=== PATIENT | male | born 1960 | race Hispanic/Latino ===

== ENCOUNTER → 2018-04-19 | Outpatient (CLI) | payer MEDICARE, OTHER ==
[~2018-04-19] MED LIST: BACL10TA PO; CHOL400T33 PO; INSLAN SQ; LIRA0.6P SQ; LOSA25TA16 PO; METF-446 PO; METO-408 PO; PREG75 PO; TYL2 PO
== END | disposition home or self-care (01) ==
LOC: RAH 12:20
PROVIDERS: ATTEND Internal Medicine
DX: E11.40 Type 2 diabetes mellitus with diabetic neuropathy, unspecified (principal)
CPT/HCPCS: 93922

== ENCOUNTER → 2018-08-01 | Outpatient (CLI) | payer OTHER ==
[~2018-08-01] MED LIST changes: -LOSA25TA16 PO; +LOSA25TA41 PO
== END | disposition home or self-care (01) ==
LOC: SHCH 07:39
PROVIDERS: ATTEND Internal Medicine Cardiovascular Disease
DX: T82.898A Other specified complication of vascular prosthetic devices, implants and grafts, initial encounter (principal); Y83.2 Surgical operation with anastomosis, bypass or graft as the cause of abnormal reaction of the patient, or of later complication, without mention of misadventure at the time of the procedure
CPT/HCPCS: 93880

== ENCOUNTER 2019-03-01 08:04 | Day surgery (SDC) | payer OTHER ==
[2019-02-28 11:25] VITALS: BP 155/88
[2019-02-28 11:36] LABS: BASOPHILS % (AUTO) 0.7 % (0.0-5.0); EOSINOPHILS % (AUTO) 3.4 % (0.0-8.0); HEMATOCRIT 32.9 % (42-54); LYMPHOCYTES % (AUTO) 30.4 % (21.0-51.0); MEAN CORPUSCULAR HEMOGLOBIN 27.9 pg (27.0-33.0); MEAN CORPUSCULAR VOLUME 84.7 fL (79-99); MONOCYTES % (AUTO) 9.3 % (3.0-13.0); NEUTROPHILS % (AUTO) 56.2 % (40.0-77.0); NUCLEATED RED BLOOD CELLS 0.1 % (0.0-0.19); PLATELET COUNT (AUTO) 201 K/uL (130-400); RED BLOOD CELL COUNT(AUTO) 3.88 MIL/uL (4.50-6.20); WHITE BLOOD COUNT (AUTO) 5.1 K/uL (4.8-10.8)
[2019-02-28 11:46] LABS: POTASSIUM 4.7 mmol/L (3.5-5.1)
[2019-02-28 12:40] LABS: CREATININE 1.1 mg/dL (0.5-1.5)
--- NOTE | 2019-02-28 17:36 | NUR ---
LABS ABNORMAL H&H REPORTED TO DR. CRUZ. NO FURTHER ORDERS GIVEN
[2019-03-01] VITALS (12 sets, daily range): BP systolic 122–159; BP diastolic 80–95
[~2019-03-01] VITALS: Ht 175.3 cm; Wt 110.0 kg
[~2019-03-01 08:04] MED LIST changes: +ASPI-1181 PO; +ATOR20TA65 PO; -BACL10TA PO; +CHOL100046 PO; -CHOL400T33 PO; +FURO40TA5 PO; -INSLAN SQ; +INSU100I24 SQ; +ISOS30TA6 PO; -LOSA25TA41 PO; +METO-391 PO; -METO-408 PO; +RIVA20TA PO; +TELM40TA5 PO; -TYL2 PO
[2019-03-01] MEDS ORDERED: SODIUM CHLORIDE 0.9% 1000ML 1,000 ML IV ONE (09:16)
[2019-03-01] MEDS ORDERED: CEFAZOLIN SODIUM 1 GM VIAL ONE (09:16)
[2019-03-01] MEDS ORDERED: EPINEPHRINE 1 MG/ML 30ML VIAL IJ ONE (09:43)
[2019-03-01] MEDS: CEFAZOLIN SODIUM 1 GM VIAL IVP ONE ×2 (09:48→10:25)
[2019-03-01] MEDS ORDERED: PROPOFOL 10 MG/ML 20ML VIAL IV ONE (09:52)
[2019-03-01] MEDS ORDERED: LIDOCAINE PF 2% 5ML ABBOJECT ONE (09:52)
[2019-03-01] MEDS ORDERED: FENTANYL CITRATE PF 50 MCG/1 ML 5ML AMP IV ONE (09:53)
[2019-03-01] MEDS ORDERED: MIDAZOLAM HCL 1 MG/ML 2ML VIAL ONE (09:53)
[2019-03-01] MEDS ORDERED: ROCURONIUM 10MG/1ML SYR 10 MG/ML ML ONE (09:53)
[2019-03-01] MEDS ORDERED: EPHEDRINE SULFATE 50 MG/ML AMPULE ONE (10:00)
[2019-03-01] MEDS ORDERED: ROPIVACAINE 0.5% 5MG/ML 30ML IJ ONE (10:04)
[2019-03-01] MEDS ORDERED: PHENYLEPHRINE HCL 10 MG/ML 1ML VIAL IV ONE (12:03)
[2019-03-01] MEDS ORDERED: KETOROLAC TROMETHAMINE 30MG/ML ONE (12:57)
[2019-03-01] MEDS ORDERED: ONDANSETRON HCL 4 MG/2 ML VIAL ONE (12:57)
[2019-03-01] MEDS ORDERED: DEXAMETHASONE SOD PHOSPHATE 10MG/ML 1ML VIAL ONE (12:58)
[2019-03-01] MEDS ORDERED: GLYCOPYRROLATE 1 MG/5 ML SYRINGE ONE (12:58)
[2019-03-01] MEDS ORDERED: NEOSTIGMINE 5MG/5ML SYR IV ONE (12:58)
[2019-03-01] MEDS ORDERED: CEPH500B PO (13:12)
[2019-03-01] MEDS ORDERED: MEPERIDINE-PF 25 MG/ML SYG ONE ×2 (13:12→13:42)
[2019-03-01] MEDS ORDERED: HYDR-4457 PO (13:12)
--- NOTE | 2019-03-01 14:25 | NUR ---
RECEIVE PT RECEIVED FROM PACU VIA STRETCHER AWAKE ALERT ORIENTED X3. PT STABLE. NOT N ANY APPARENT DISTRESS. LEFT ARM IN SLING, SENSATION INTACT, GRASP WEAK. CALL [facility]ALLERO WITHIN REACH, WILL CALL FOR FAMILY TO COME IN TO ROOM. ICE PACK APPLIED TO LEFT SHOULDER, DRESSINGS X4 TO LEFT SHOULDER DRY AND INTACT, NO OOZING NOTED.
--- NOTE | 2019-03-01 15:15 | NUR ---
DISCHARGE PT DISCHARGED VIA WHEELCHAIR WITH AND DAUGHTER. PT STABLE. NO COMPLAINTS MADE. VOIDED PRIOR TO DISCHARGE. DRESSINGS X4 TO LEFT SHOULDER REMAINS DRY AND INTACT. DISCHARGE INSTRUCTIONS GIVEN TO , VERBALIZED UNDERSTANDING.
== END 2019-03-01 15:15 | disposition home or self-care (01) ==
LOC: DAH 08:04
PROVIDERS: ATTEND Orthopaedic Surgery
DX: M75.122 Complete rotator cuff tear or rupture of left shoulder, not specified as traumatic (principal); M25.812 Other specified joint disorders, left shoulder; M19.012 Primary osteoarthritis, left shoulder; I10 Essential (primary) hypertension; I25.10 Atherosclerotic heart disease of native coronary artery without angina pectoris; K59.00 Constipation, unspecified; H91.90 Unspecified hearing loss, unspecified ear; E11.9 Type 2 diabetes mellitus without complications; I48.91 Unspecified atrial fibrillation; E78.5 Hyperlipidemia, unspecified; Z79.899 Other long term (current) drug therapy; Z95.5 Presence of coronary angioplasty implant and graft; Z98.890 Other specified postprocedural states; Z80.0 Family history of malignant neoplasm of digestive organs; Z79.01 Long term (current) use of anticoagulants; Z86.73 Personal history of transient ischemic attack (TIA), and cerebral infarction without residual deficits
CPT/HCPCS: 23430; 29824; 29826; 29827; 36415; 64415; 76942; 80048; 82948 ×2; 85025; A4215; A4221; A4222; A4223; A4565; A4600; A4649 ×7; A4663; A4930; A6204; C1713 ×3; G0168; J0171; J0690; J1100; J1885; J2001; J2175 ×2; J2250; J2370; J2405; J2704; J2710; J2795; J3010; J3490 ×2; J7030 ×2

== ENCOUNTER 2019-10-28 05:52 | Day surgery (SDC) | payer OTHER ==
[2019-10-24 09:30] VITALS: BP 160/91
[2019-10-24 09:49] LABS: BASOPHILS % (AUTO) 0.8 % (0.0-5.0); EOSINOPHILS % (AUTO) 3.7 % (0.0-8.0); LYMPHOCYTES % (AUTO) 26.8 % (21.0-51.0); MEAN CORPUSCULAR HEMOGLOBIN 23.6 pg (27.0-33.0); MEAN CORPUSCULAR HGB CONC 29.4 g/dL (32.0-36.0); MEAN CORPUSCULAR VOLUME 80.2 fL (79-99); MONOCYTES % (AUTO) 9.7 % (3.0-13.0); NEUTROPHILS % (AUTO) 58.8 % (40.0-77.0); PLATELET COUNT (AUTO) 192 K/uL (130-400); RED BLOOD CELL COUNT(AUTO) 3.99 MIL/uL (4.50-6.20); RED CELL DISTRIBUTION WIDTH 17.4 % (11.0-15.5); WHITE BLOOD COUNT (AUTO) 5.2 K/uL (4.8-10.8)
[2019-10-24 10:12] LABS: CREATININE 1.3 mg/dL (0.5-1.5); POTASSIUM 4.2 mmol/L (3.5-5.1)
--- NOTE | 2019-10-25 11:45 | NUR ---
RE: ABNORMAL LABS INFORMED DR CRUZ REGARDING HGB 9.4, HCT 32.0. NO NEW ORDERS RECEIVED, MAY PROCEED WITH SURGERY.
[2019-10-28] VITALS (15 sets, daily range): BP systolic 107–166; BP diastolic 64–93
[~2019-10-28] VITALS: Ht 176.8 cm; Wt 115.8 kg
[~2019-10-28 05:52] MED LIST changes: -ASPI-1181 PO; +ASPI-1443 PO; -TELM40TA5 PO; +TELM40TA8 PO; +TRAZ-187 PO
[2019-10-28] MEDS ORDERED: CEFAZOLIN SODIUM 1 GM VIAL IVP SCH (06:00)
[2019-10-28] MEDS ORDERED: SODIUM CHLORIDE 0.9% 1000ML 1,000 ML IV ONE (06:53)
--- NOTE | 2019-10-28 06:55 | NUR ---
POTENTIAL FOR INFECTION: CLIPPED RIGHT KNEE / RIGHT LEG PER ANNMARIE MADERA, FOLLOWED BY WIPING WITH AZEB: 2% CHLORHEXIDINE GLUCONATE CLOTHE PATIENTS PRE-OP SKIN PREP.
[2019-10-28] MEDS ORDERED: SUCCINYLCHOLINE CHLORIDE 20 MG/ML 10 ML VIAL ONE (07:20)
[2019-10-28] MEDS ORDERED: LIDOCAINE PF 2% 5ML ABBOJECT ONE (07:20)
[2019-10-28] MEDS ORDERED: FENTANYL CITRATE PF 50 MCG/1 ML 2ML VIAL ONE (07:20)
[2019-10-28] MEDS ORDERED: PROPOFOL 10 MG/ML 20ML VIAL IV ONE (07:20)
[2019-10-28] MEDS ORDERED: MIDAZOLAM HCL 1 MG/ML 2ML VIAL ONE (07:21)
[2019-10-28] MEDS ORDERED: ROCURONIUM 10MG/1ML SYR 10 MG/ML ML ONE (08:12)
[2019-10-28] MEDS ORDERED: EPHEDRINE SULFATE 50 MG/ML AMPULE ONE (08:17)
[2019-10-28] MEDS ORDERED: GLYCOPYRROLATE 1 MG/5 ML SYRINGE ONE (08:19)
[2019-10-28] MEDS ORDERED: NEOSTIGMINE 5MG/5ML SYR IV ONE (08:20)
[2019-10-28] MEDS ORDERED: PHENYLEPHRINE HCL 10 MG/ML 1ML VIAL IV ONE (08:20)
[2019-10-28] MEDS ORDERED: SUGAMMADEX SODIUM 200 MG/2 ML VIAL IV ONE (08:34)
[2019-10-28] MEDS ORDERED: ACET1TAB12 PO (08:45)
[2019-10-28] MEDS ORDERED: CEPH500B PO (08:45)
== END 2019-10-28 10:35 | disposition home or self-care (01) ==
LOC: DAH 05:52
PROVIDERS: ATTEND Orthopaedic Surgery
DX: M23.221 Derangement of posterior horn of medial meniscus due to old tear or injury, right knee (principal); M17.11 Unilateral primary osteoarthritis, right knee; M94.261 Chondromalacia, right knee; I10 Essential (primary) hypertension; E78.5 Hyperlipidemia, unspecified; K21.9 Gastro-esophageal reflux disease without esophagitis; E11.40 Type 2 diabetes mellitus with diabetic neuropathy, unspecified; E11.59 Type 2 diabetes mellitus with other circulatory complications; E11.29 Type 2 diabetes mellitus with other diabetic kidney complication; E11.319 Type 2 diabetes mellitus with unspecified diabetic retinopathy without macular edema; I48.20 Chronic atrial fibrillation, unspecified; F41.1 Generalized anxiety disorder; D64.89 Other specified anemias; J44.9 Chronic obstructive pulmonary disease, unspecified; H91.90 Unspecified hearing loss, unspecified ear; Z86.73 Personal history of transient ischemic attack (TIA), and cerebral infarction without residual deficits; F17.200 Nicotine dependence, unspecified, uncomplicated; Z95.5 Presence of coronary angioplasty implant and graft; I25.10 Atherosclerotic heart disease of native coronary artery without angina pectoris; Z79.01 Long term (current) use of anticoagulants; Z79.899 Other long term (current) drug therapy
CPT/HCPCS: 29881; 36415; 80048; 82948 ×2; 85025; A4213; A4215; A4221; A4222; A4223; A4606; A4649 ×2; A4663; A4930; A5120; A6223; J0330; J0690; J2001; J2250; J2370; J2704; J2710; J3010; J3490 ×2; J7030 ×2; J7120

== ENCOUNTER 2019-11-20 14:14 | Emergency (ER) | payer OTHER ==
[~2019-11-20 14:14] MED LIST changes: +ACET1TAB12 PO; +CEPH500B PO
[2019-11-20] MEDS ORDERED: ASPIRIN 325 MG TABLET ONE (14:47)
[2019-11-20 14:53] LABS: BASOPHILS % (AUTO) 0.6 % (0.0-5.0); EOSINOPHILS % (AUTO) 3.2 % (0.0-8.0); HEMATOCRIT 28.4 % (42-54); LYMPHOCYTES % (AUTO) 25.9 % (21.0-51.0); MEAN CORPUSCULAR HEMOGLOBIN 23.4 pg (27.0-33.0); MEAN CORPUSCULAR HGB CONC 30.3 g/dL (32.0-36.0); MEAN CORPUSCULAR VOLUME 77.2 fL (79-99); MONOCYTES % (AUTO) 10.1 % (3.0-13.0); PLATELET COUNT (AUTO) 175 K/uL (130-400); RED BLOOD CELL COUNT(AUTO) 3.68 MIL/uL (4.50-6.20); RED CELL DISTRIBUTION WIDTH 17.5 % (11.0-15.5); WHITE BLOOD COUNT (AUTO) 5.3 K/uL (4.8-10.8)
[2019-11-20 15:07] LABS: CREATININE 1.4 mg/dL (0.5-1.5); POTASSIUM 4.1 mmol/L (3.5-5.1)
[2019-11-20 15:08] LABS: INR 1.26 (0.85-1.15); PARTIAL THROMBOPLASTIN TIME 31.5 SEC (26.3-35.5); PROTHROMBIN TIME 13.5 SEC (9.6-11.6)
[2019-11-20 15:11] LABS: ALBUMIN 3.9 g/dL (3.5-5.0); BILIRUBIN,TOTAL 0.6 mg/dL (0.2-1.0); TOTAL PROTEIN, SERUM 7.5 g/dL (6.0-8.3)
[2019-11-20 17:35] LABS: APPEARANCE,URINE Clear (CLEAR); BILIRUBIN,URINE Negative (NEGATIVE); COLOR,URINE Yellow (YELLOW); GLUCOSE, URINE (UA) 500 mg/dL (NEGATIVE); KETONES,URINE Negative (NEGATIVE); LEUKOCYTE ESTERASE ,URINE Negative (NEGATIVE); NITRATE,URINE Negative (NEGATIVE); OCCULT BLOOD,URINE Negative (NEGATIVE); PH,URINE 6.5 (5.0-8.0); PROTEIN,URINE Trace mg/dL (NEGATIVE)
[2019-11-20 17:48] LABS: BACTERIA,URINE None Seen /HPF (None Seen); RBC,URINE 0-1 /HPF (0-1); SQUAMOUS EPITHELIAL CELL,UR 0-2 /HPF (0-2); WBC,URINE 0-1 /HPF (0-1)
== END 2019-11-20 18:43 | disposition home or self-care (01) ==
LOC: EDH 14:14
DX: R07.89 Other chest pain (principal); D64.9 Anemia, unspecified; R06.02 Shortness of breath; I10 Essential (primary) hypertension; E78.5 Hyperlipidemia, unspecified; E11.9 Type 2 diabetes mellitus without complications; I48.91 Unspecified atrial fibrillation; Z86.73 Personal history of transient ischemic attack (TIA), and cerebral infarction without residual deficits; Z98.890 Other specified postprocedural states
CPT/HCPCS: 36415; 71045; 74176; 80053; 81001; 82270; 82550; 83880; 84484; 85025; 85610; 85730; 93005; 93971

== ENCOUNTER → 2020-05-06 | Outpatient (CLI) | payer OTHER | END | disposition home or self-care (01) | LOC: RAH 05-04 09:33 | PROVIDERS: ATTEND Internal Medicine Gastroenterology | DX: R14.0 Abdominal distension (gaseous) (principal); K76.0 Fatty (change of) liver, not elsewhere classified | CPT/HCPCS: 76700 ==

== ENCOUNTER 2020-09-15 05:46 | Day surgery (SDC) | payer OTHER ==
[2020-09-11 13:49] LABS: BASOPHILS % (AUTO) 0.5 % (0.0-5.0); EOSINOPHILS % (AUTO) 2.3 % (0.0-8.0); HEMATOCRIT 39.2 % (42-54); LYMPHOCYTES % (AUTO) 24.3 % (21.0-51.0); MEAN CORPUSCULAR HEMOGLOBIN 32.2 pg (27.0-33.0); MEAN CORPUSCULAR HGB CONC 35.7 g/dL (32.0-36.0); MEAN CORPUSCULAR VOLUME 90.1 fL (79-99); MONOCYTES % (AUTO) 7.7 % (3.0-13.0); NEUTROPHILS % (AUTO) 64.7 % (40.0-77.0); PLATELET COUNT (AUTO) 216 K/uL (130-400); RED BLOOD CELL COUNT(AUTO) 4.35 MIL/uL (4.50-6.20); RED CELL DISTRIBUTION WIDTH 12.8 % (11.0-15.5); WHITE BLOOD COUNT (AUTO) 6.6 K/uL (4.8-10.8)
[2020-09-11 14:00] LABS: INR 1.05 (0.85-1.15); PROTHROMBIN TIME 11.4 SEC (9.6-11.6)
[2020-09-11 14:01] LABS: PARTIAL THROMBOPLASTIN TIME 28.2 SEC (26.3-35.5)
[2020-09-11 14:03] LABS: CREATININE 1.5 mg/dL (0.5-1.5); POTASSIUM 4.2 mmol/L (3.5-5.1)
[2020-09-11 14:18] LABS: APPEARANCE,URINE Clear (CLEAR); BILIRUBIN,URINE Negative (NEGATIVE); COLOR,URINE Yellow (YELLOW); GLUCOSE, URINE (UA) >=1000 mg/dL (NEGATIVE); KETONES,URINE Negative (NEGATIVE); LEUKOCYTE ESTERASE ,URINE Negative (NEGATIVE); NITRATE,URINE Negative (NEGATIVE); OCCULT BLOOD,URINE Negative (NEGATIVE); PROTEIN,URINE Negative (NEGATIVE); UROBILINOGEN,URINE 0.2 mg/dL (0.2-1.0)
[2020-09-11 14:56] LABS: BACTERIA,URINE None Seen /HPF (None Seen); MUCUS,URINE Rare LPF (None Seen); RBC,URINE 0-1 /HPF (0-1); SQUAMOUS EPITHELIAL CELL,UR 0-2 /HPF (0-2); WBC,URINE 0-1 /HPF (0-1)
[2020-09-14 10:50] VITALS: BP 146/76
[2020-09-15] VITALS (10 sets, daily range): BP systolic 118–148; BP diastolic 78–103
[~2020-09-15] VITALS: Ht 175.3 cm; Wt 110.2 kg
[~2020-09-15 05:46] MED LIST changes: +0.9% NACL 500ML IV.SOLN 500 ML IV SCH; -ACET1TAB12 PO; -CEPH500B PO; -CHOL100046 PO; +DIGO125T71 PO; -ISOS30TA6 PO; +ISOS30TA92 PO; +METO2.5T2 PO; +PANT40TA54 PO
[2020-09-15] MEDS ORDERED: 0.9%NACL 1000ML 1,000 ML IV ONE (06:20)
[2020-09-15] MEDS ORDERED: 0.9%NACL 1000ML 1,000 ML IV SCH (06:30)
[2020-09-15] MEDS ORDERED: INSULIN HUMULIN R 100 UNIT/ML 3ML ONE (06:57)
[2020-09-15] MEDS ORDERED: HEPARIN 10,000 UNIT/10ML (1,000 UNIT/ML) VIAL ONE (07:10)
[2020-09-15] MEDS ORDERED: IOHEXOL-350 50ML VIAL IV ONE (07:10)
[2020-09-15] MEDS ORDERED: LIDOCAINE HCL 400MG/20ML VIAL ONE (07:10)
[2020-09-15] MEDS ORDERED: IOHEXOL 350 MG/ML 100ML INFUS..BTL IV ONE (07:10)
[2020-09-15] MEDS ORDERED: NITROGLYCERIN 2 MG VIAL IV ONE (07:10)
[2020-09-15] MEDS ORDERED: METOPROLOL TARTRATE 1 MG/ML 5ML VIAL IV ONE (07:55)
[2020-09-15] MEDS ORDERED: GLUCAGON 1MG KIT 1 MG ML IM PRN (08:00)
[2020-09-15] MEDS ORDERED: DEXTROSE 50%-WATER 50 ML DISP.SYRIN IV PRN (08:00)
[2020-09-15] MEDS ORDERED: ACETAMINOPHEN 325 MG TAB ONE (08:42)
[2020-09-15] MEDS ORDERED: ACETAMINOPHEN 325 MG TAB PO ONE (08:45)
[2020-09-15] MEDS ORDERED: ACETAMINOPHEN 325 MG TAB PO SCH (10:00)
[2020-09-15] MEDS ORDERED: INSULIN HUMULIN R 100 UNIT/ML 3ML SQ SCH ×2 (11:30→12:00)
[2021-05-05] MEDS ORDERED: SEMA1PEN3 SQ (13:03)
[2021-05-05] MEDS ORDERED: METO-391 PO (13:03)
== END 2020-09-15 12:35 | disposition home or self-care (01) ==
LOC: DAH 05:46
PROVIDERS: ATTEND Internal Medicine Cardiovascular Disease
DX: I25.118 Atherosclerotic heart disease of native coronary artery with other forms of angina pectoris (principal); I10 Essential (primary) hypertension; E78.5 Hyperlipidemia, unspecified; E11.9 Type 2 diabetes mellitus without complications; I48.21 Permanent atrial fibrillation; Z79.899 Other long term (current) drug therapy; Z98.890 Other specified postprocedural states; Z79.01 Long term (current) use of anticoagulants; Z79.82 Long term (current) use of aspirin; Z79.4 Long term (current) use of insulin
CPT/HCPCS: 36415; 71045; 80048; 81001; 82948 ×2; 85025; 85610; 85730; 93005; 93458; A4215; A4216; A4221; A4222; A4223 ×3; A4606; A4663; C1760; C1894; J1644; J1815 ×2; J3490 ×2; J7030; Q9965; Q9967 ×2

== ENCOUNTER 2021-05-06 06:28 | Observation (INO) | payer OTHER ==
[2021-05-05 11:30] LABS: BASOPHILS % (AUTO) 0.5 % (0.0-5.0); EOSINOPHILS % (AUTO) 2.6 % (0.0-8.0); HEMATOCRIT 40.7 % (42-54); LYMPHOCYTES % (AUTO) 29.1 % (21.0-51.0); MEAN CORPUSCULAR HEMOGLOBIN 30.5 pg (27.0-33.0); MEAN CORPUSCULAR HGB CONC 33.4 g/dL (32.0-36.0); MEAN CORPUSCULAR VOLUME 91.3 fL (79-99); NEUTROPHILS % (AUTO) 60.6 % (40.0-77.0); PLATELET COUNT (AUTO) 184 K/uL (130-400); RED BLOOD CELL COUNT(AUTO) 4.46 MIL/uL (4.50-6.20); RED CELL DISTRIBUTION WIDTH 12.9 % (11.0-15.5); WHITE BLOOD COUNT (AUTO) 5.8 K/uL (4.8-10.8)
[2021-05-05 11:34] LABS: APPEARANCE,URINE Clear (CLEAR); BILIRUBIN,URINE Negative (NEGATIVE); COLOR,URINE Yellow (YELLOW); GLUCOSE, URINE (UA) >=1000 mg/dL (NEGATIVE); KETONES,URINE Negative (NEGATIVE); LEUKOCYTE ESTERASE ,URINE Negative (NEGATIVE); NITRATE,URINE Negative (NEGATIVE); OCCULT BLOOD,URINE Negative (NEGATIVE); PH,URINE 5.5 (5.0-8.0); PROTEIN,URINE Negative (NEGATIVE); UROBILINOGEN,URINE 0.2 mg/dL (0.2-1.0)
[2021-05-05 11:35] LABS: CREATININE 1.4 mg/dL (0.5-1.5); POTASSIUM 4.4 mmol/L (3.5-5.1)
[2021-05-05 11:47] LABS: BACTERIA,URINE None Seen /HPF (None Seen); RBC,URINE None Seen /HPF (0-1); SQUAMOUS EPITHELIAL CELL,UR 0-2 /HPF (0-2); WBC,URINE None Seen /HPF (0-1)
[2021-05-05 11:50] LABS: INR 1.05 (0.85-1.15); PROTHROMBIN TIME 11.4 SEC (9.6-11.6)
[2021-05-05 11:51] LABS: PARTIAL THROMBOPLASTIN TIME 27.1 SEC (26.3-35.5)
[2021-05-05 12:34] VITALS: BP 149/82
[2021-05-06] VITALS (14 sets, daily range): BP systolic 108–145; BP diastolic 61–106
[~2021-05-06] VITALS: Ht 152.4 cm; Wt 108.0 kg
[~2021-05-06 06:28] MED LIST changes: -LIRA0.6P SQ; +SEMA1PEN3 SQ
[2021-05-06] MEDS ORDERED: BIVALIRUDIN 250 MG/VIAL IV ONE (09:46)
[2021-05-06] MEDS ORDERED: IOHEXOL 350 MG/ML 100ML INFUS..BTL IV ONE (09:47)
[2021-05-06] MEDS ORDERED: NITROGLYCERIN 2 MG VIAL IV ONE (09:47)
[2021-05-06] MEDS ORDERED: IOHEXOL-350 50ML VIAL IV ONE (09:47)
[2021-05-06] MEDS ORDERED: LIDOCAINE HCL 400MG/20ML VIAL ONE (09:47)
[2021-05-06] MEDS ORDERED: HEPARIN 10,000 UNIT/10ML (1,000 UNIT/ML) VIAL ONE (09:47)
[2021-05-06] MEDS ORDERED: MIDAZOLAM HCL 1 MG/ML 2ML VIAL ONE (10:05)
[2021-05-06] MEDS ORDERED: MORPHINE 4 MG SYG ONE ×2 (10:54→11:13)
[2021-05-06] MEDS ORDERED: CLOPIDOGREL 300MG TAB ONE (11:05)
[2021-05-06] MEDS ORDERED: ONDANSETRON 4MG INJ ONE (11:13)
[2021-05-06] MEDS ORDERED: DEXTROSE 50%-WATER 50 ML DISP.SYRIN IV PRN (11:30)
[2021-05-06] MEDS ORDERED: GLUCAGON 1MG KIT 1 MG ML IM PRN (11:30)
[2021-05-06] MEDS ORDERED: ACETAMINOPHEN 325 MG TAB ONE (17:20)
[2021-05-06] MEDS ORDERED: ACETAMINOPHEN 325 MG TAB PO PRN (17:30)
[2021-05-06] MEDS ORDERED: DIGOXIN 125 MCG TABLET PO SCH (21:00)
[2021-05-06] MEDS ORDERED: TRAZODONE HCL 100 MG TABLET PO SCH (21:00)
[2021-05-06] MEDS: PREGABALIN 75 MG CAPSULE PO SCH (21:22)
[2021-05-07] VITALS: BP 139/78
[2021-05-07 04:00] VITALS: BP 122/73
[2021-05-07] MEDS ORDERED: AEC81 PO (06:08)
[2021-05-07] MEDS ORDERED: CLOP75TA32 PO (06:08)
[2021-05-07] MEDS ORDERED: PANTOPRAZOLE 40 MG TAB DR PO SCH (07:30)
[2021-05-07] MEDS: PREGABALIN 75 MG CAPSULE PO SCH (08:32)
[2021-05-07 08:42] VITALS: BP 136/76
[2021-05-07] MEDS ORDERED: ISOSORBIDE MONO 30MG SR TAB PO SCH (09:00)
[2021-05-07] MEDS ORDERED: METOPROLOL SUCCINATE 50 MG TAB.SR.24H PO SCH (09:00)
[2021-05-07] MEDS ORDERED: FUROSEMIDE 40 MG TABLET PO SCH (09:00)
[2021-05-07] MEDS ORDERED: METOLAZONE 2.5 MG TABLET PO SCH (09:00)
[2021-05-07] MEDS ORDERED: ASPIRIN 81 MG EC TAB PO SCH (09:00)
[2021-05-07] MEDS ORDERED: LOSARTAN 50 MG TABLET PO SCH (09:00)
[2021-05-07] MEDS ORDERED: ATORVASTATIN 20 MG TABLET PO SCH (09:00)
[2021-05-07 12:01] VITALS: BP 117/66
[2021-05-13] MEDS ORDERED: SEMAGLUTIDE 0.5 MG SQ SCH (09:00)
== END 2021-05-07 13:40 | disposition home or self-care (01) ==
LOC: DAH 06:28 → DAHIP 06:29 → 4CH 17:09
PROVIDERS: ADMIT Internal Medicine Cardiovascular Disease; ATTEND Internal Medicine Cardiovascular Disease
DX: I25.119 Atherosclerotic heart disease of native coronary artery with unspecified angina pectoris (principal); I10 Essential (primary) hypertension; E11.40 Type 2 diabetes mellitus with diabetic neuropathy, unspecified; E78.5 Hyperlipidemia, unspecified; I48.19 Other persistent atrial fibrillation; Z79.01 Long term (current) use of anticoagulants; Z95.5 Presence of coronary angioplasty implant and graft; Z79.899 Other long term (current) drug therapy; Z79.4 Long term (current) use of insulin
CPT/HCPCS: 36415; 71045; 80048; 81001; 82948 ×5; 85025; 85610; 85730; 92920; 93005 ×2; 93458; A4215; A4216; A4221; A4222; A4223 ×3; A4606; A4663; C1725; C1760; C1769 ×2; C1887; C1894; G0378 ×27; J1644 ×2; J2250; J2270 ×2; J2405; J3490 ×2; Q9965; Q9967 ×2; 99156; 99157; J0583

== ENCOUNTER → 2021-10-20 | Outpatient (CLI) | payer OTHER ==
[~2021-10-20] MED LIST changes: -0.9% NACL 500ML IV.SOLN 500 ML IV SCH; +AEC81 PO; +CLOP75TA32 PO
== END ==
LOC: SHCH 10:18
PROVIDERS: ATTEND Internal Medicine Cardiovascular Disease
DX: G45.9 Transient cerebral ischemic attack, unspecified (principal)
CPT/HCPCS: 93880

== ENCOUNTER 2022-01-26 06:10 | Day surgery (SDC) | payer OTHER ==
[2022-01-24 10:16] LABS: BASOPHILS % (AUTO) 0.5 % (0.0-5.0); EOSINOPHILS % (AUTO) 2.6 % (0.0-8.0); HEMATOCRIT 43.9 % (42-54); LYMPHOCYTES % (AUTO) 28.7 % (21.0-51.0); MEAN CORPUSCULAR HEMOGLOBIN 30.4 pg (27.0-33.0); MEAN CORPUSCULAR HGB CONC 33.7 g/dL (32.0-36.0); MEAN CORPUSCULAR VOLUME 90.1 fL (79-99); MONOCYTES % (AUTO) 7.4 % (3.0-13.0); NEUTROPHILS % (AUTO) 60.5 % (40.0-77.0); PLATELET COUNT (AUTO) 204 K/uL (130-400); RED BLOOD CELL COUNT(AUTO) 4.87 MIL/uL (4.50-6.20); RED CELL DISTRIBUTION WIDTH 13.5 % (11.0-15.5); WHITE BLOOD COUNT (AUTO) 6.5 K/uL (4.8-10.8)
[2022-01-24 11:46] LABS: INR 0.99 (0.85-1.15); PROTHROMBIN TIME 10.8 SEC (9.6-11.6)
[2022-01-24 11:48] LABS: PARTIAL THROMBOPLASTIN TIME 28.9 SEC (26.3-35.5)
[2022-01-25 10:54] VITALS: BP 134/83
[~2022-01-26] VITALS: Ht 180.3 cm; Wt 105.5 kg
[2022-01-26] VITALS (20 sets, daily range): BP systolic 105–149; BP diastolic 62–88
[~2022-01-26 06:10] MED LIST changes: -AEC81 PO; -ASPI-1443 PO; -CLOP75TA32 PO; +ICOS1CAP PO; -ISOS30TA92 PO; -PREG75 PO
[2022-01-26] MEDS ORDERED: 0.9%NACL 1000ML 1,000 ML IV ONE (07:06)
[2022-01-26] MEDS: CEFAZOLIN SODIUM 1 GM VIAL ONE ×2 (07:31→09:09)
[2022-01-26 07:56] LABS: CREATININE 1.3 mg/dL (0.5-1.5); POTASSIUM 3.8 mmol/L (3.5-5.1)
[2022-01-26] MEDS ORDERED: LIDOCAINE 1%-EPI 1:100,000 20 ML VIAL IJ ONE (09:08)
[2022-01-26] MEDS ORDERED: BACITRACIN 28.4 GM OINT TP ONE (09:08)
[2022-01-26] MEDS ORDERED: ROCURONIUM 10MG/1ML SYR 10 MG/ML ML ONE ×2 (09:12→10:38)
[2022-01-26] MEDS ORDERED: GLYCOPYRROLATE 1 MG/5 ML SYRINGE ONE (09:12)
[2022-01-26] MEDS ORDERED: PROPOFOL 10 MG/ML 20ML VIAL IV ONE (09:12)
[2022-01-26] MEDS ORDERED: FENTANYL CITRATE PF 50 MCG/1 ML 2ML VIAL ONE (09:12)
[2022-01-26] MEDS ORDERED: MIDAZOLAM HCL 1 MG/ML 2ML VIAL ONE (09:12)
[2022-01-26] MEDS ORDERED: EPINEPHRINE 1 MG/ML 30ML VIAL IJ ONE (09:30)
[2022-01-26] MEDS ORDERED: LIDOCAINE HCL 1% 20 ML VIAL ONE (09:32)
[2022-01-26] MEDS ORDERED: EPINEPHRINE PF 1MG (1:1,000) 1 MG/ML AMP ONE (09:32)
[2022-01-26] MEDS ORDERED: EPHEDRINE SULFATE 50 MG/ML AMPULE ONE (10:12)
[2022-01-26] MEDS ORDERED: ONDANSETRON 4MG INJ ONE (10:15)
[2022-01-26] MEDS ORDERED: NEOSTIGMINE 5MG/5ML SYR IV ONE (10:15)
== END 2022-01-26 13:20 | disposition home or self-care (01) ==
LOC: DAH 06:10
PROVIDERS: ATTEND Otolaryngology Plastic Surgery within the Head & Neck
DX: H70.12 Chronic mastoiditis, left ear (principal); H72.92 Unspecified perforation of tympanic membrane, left ear; E11.9 Type 2 diabetes mellitus without complications; I11.9 Hypertensive heart disease without heart failure; I48.91 Unspecified atrial fibrillation; Z79.84 Long term (current) use of oral hypoglycemic drugs; Z79.899 Other long term (current) drug therapy; Z86.73 Personal history of transient ischemic attack (TIA), and cerebral infarction without residual deficits; Z79.01 Long term (current) use of anticoagulants; Z98.890 Other specified postprocedural states; Z79.890 Hormone replacement therapy; Z95.5 Presence of coronary angioplasty implant and graft
CPT/HCPCS: 85025; 85610; 85730; 87426; 36415 ×2; 93005; 69631; 80048; 82948 ×2; 88305; 88312; A4663; J7040; A4649; A4452; J3010; J0690; J3490 ×2; J2710; J7030; J0171 ×2; J2250; J2704; J2405; A6446; A4215; A4223; A4222; A4221

== ENCOUNTER 2022-03-07 11:35 | Emergency (ER) | payer OTHER ==
[~2022-03-07] VITALS: Ht 180.3 cm; Wt 104.3 kg
[2022-03-07 11:42] VITALS: BP 116/67
[2022-03-07] MEDS ORDERED: ACET-2079 PO (13:14)
[2022-03-07] MEDS ORDERED: ACYC-138 PO (13:14)
[2022-03-07] MEDS ORDERED: ACETAMINOPHEN WITH CODEINE 1 TAB TAB PO ONE (13:30)
== END 2022-03-07 13:26 | disposition home or self-care (01) ==
LOC: EDH 11:35
DX: B02.9 Zoster without complications (principal); M54.6 Pain in thoracic spine

== ENCOUNTER → 2022-08-04 | Outpatient (CLI) | payer OTHER ==
[~2022-08-04] MED LIST changes: +ACET-2079 PO; +ACYC-138 PO
== END | disposition home or self-care (01) ==
LOC: SHCH 14:45
PROVIDERS: ATTEND Internal Medicine Cardiovascular Disease
DX: G45.9 Transient cerebral ischemic attack, unspecified (principal); Z95.828 Presence of other vascular implants and grafts
CPT/HCPCS: 93880

== ENCOUNTER 2023-03-18 09:20 | Inpatient (IN) | payer OTHER ==
[~2023-03-18] VITALS: Ht 180.3 cm; Wt 111.6 kg
[~2023-03-18 09:20] MED LIST changes: -ACET-2079 PO; -ACYC-138 PO; +AEC81 PO; +DIGO0.12 PO; -DIGO125T71 PO; +EMPA25TA PO; -FURO40TA5 PO; +PREG75CA76 PO
[2023-03-18 10:18] LABS: BASOPHILS # (AUTO) 0.03 K/uL (0.00-0.20); BASOPHILS % (AUTO) 0.4 % (0.0-5.0); EOSINOPHILS # (AUTO) 0.13 K/uL (0.00-0.70); EOSINOPHILS % (AUTO) 1.8 % (0.0-8.0); HEMATOCRIT 44.1 % (42-54); IMMATURE GRANULOCYTE ABSOLUTE 0.02 K/uL (0-1); LYMPHOCYTES # (AUTO) 1.7 K/uL (1.0-4.8); LYMPHOCYTES % (AUTO) 23.5 % (21.0-51.0); MEAN CORPUSCULAR HEMOGLOBIN 29.9 pg (27.0-33.0); MEAN CORPUSCULAR HGB CONC 33.1 g/dL (32.0-36.0); MEAN CORPUSCULAR VOLUME 90.2 fL (79-99); MONOCYTES # (AUTO) 0.5 K/uL (0.1-1.0); MONOCYTES % (AUTO) 7.5 % (3.0-13.0); NEUTROPHILS # (AUTO) 4.8 K/uL (1.8-7.7); NEUTROPHILS % (AUTO) 66.5 % (40.0-77.0); PLATELET COUNT (AUTO) 146 K/uL (130-400); RED BLOOD CELL COUNT(AUTO) 4.89 MIL/uL (4.50-6.20); RED CELL DISTRIBUTION WIDTH 14.6 % (11.0-15.5); WHITE BLOOD COUNT (AUTO) 7.2 K/uL (4.8-10.8)
[2023-03-18 10:28] LABS: CREATININE 1.2 mg/dL (0.5-1.5); POTASSIUM 3.6 mmol/L (3.5-5.1)
[2023-03-18 10:40] LABS: ALBUMIN 3.9 g/dL (3.5-5.0); BILIRUBIN,TOTAL 0.8 mg/dL (0.2-1.0); TOTAL PROTEIN, SERUM 8.2 g/dL (6.0-8.3)
[2023-03-18] MEDS ORDERED: VANCOMYCIN KIT 1 GM/250 ML IV.KIT IV ONE (11:30)
[2023-03-18] MEDS ORDERED: 0.9%NACL 50ML IV SCH (12:30)
[2023-03-18] MEDS ORDERED: INSU100I24 SQ ×2 (13:24)
[2023-03-18] MEDS: ZOSYN 3.375GM +NS 50ML IVPB SCH ×2 (13:28→21:40)
[2023-03-18] MEDS ORDERED: INSULIN DEGLUDEC 180 UNIT SQ SCH (14:00)
[2023-03-18 16:15] VITALS: O2SAT 98
[2023-03-18] MEDS: TRESIBA U SQ SCH (16:30)
[2023-03-18] MEDS: METFORMIN HCL 500 MG TABLET PO SCH (17:00)
[2023-03-18 20:00] VITALS: BP 149/84; PULSE 84; RESP 19
[2023-03-18 20:21] VITALS: O2SAT 97
[2023-03-18] MEDS ORDERED: NON-FORMULARY MEDICATION 1 EACH (Metformin HCl 1,000 MG) PO SCH (21:00)
[2023-03-18] MEDS: Icosapent Ethyl (Vascepa) 1 GM PO SCH (21:00)
[2023-03-18] MEDS ORDERED: DIGOXIN 0.125 MG PO SCH (21:00)
[2023-03-18] MEDS: PREGABALIN 75 MG CAPSULE PO SCH (21:48)
[2023-03-18] MEDS: ATORVASTATIN 20 MG TABLET PO SCH (21:48)
[2023-03-18] MEDS: TRAZODONE HCL 100 MG TABLET PO SCH (21:48)
[2023-03-18] MEDS: DIGOXIN 125 MCG TABLET PO SCH (21:48)
[2023-03-19] VITALS (31 sets, daily range): BP systolic 90–169; BP diastolic 50–95; PULSE 59–92; RESP 12–19; O2SAT 97–100
[2023-03-19] MEDS: ZOSYN 3.375GM +NS 50ML IVPB SCH ×3 (04:33→21:39)
[2023-03-19 05:47] LABS: BASOPHILS # (AUTO) 0.03 K/uL (0.00-0.20); BASOPHILS % (AUTO) 0.4 % (0.0-5.0); EOSINOPHILS % (AUTO) 2.7 % (0.0-8.0); HEMATOCRIT 43.3 % (42-54); IMMATURE GRANULOCYTE ABSOLUTE 0.02 K/uL (0-1); LYMPHOCYTES # (AUTO) 2.3 K/uL (1.0-4.8); LYMPHOCYTES % (AUTO) 31.4 % (21.0-51.0); MEAN CORPUSCULAR HEMOGLOBIN 30.1 pg (27.0-33.0); MEAN CORPUSCULAR HGB CONC 33.3 g/dL (32.0-36.0); MEAN CORPUSCULAR VOLUME 90.4 fL (79-99); MONOCYTES # (AUTO) 0.7 K/uL (0.1-1.0); MONOCYTES % (AUTO) 9.2 % (3.0-13.0); NEUTROPHILS # (AUTO) 4.1 K/uL (1.8-7.7); PLATELET COUNT (AUTO) 155 K/uL (130-400); RED BLOOD CELL COUNT(AUTO) 4.79 MIL/uL (4.50-6.20); RED CELL DISTRIBUTION WIDTH 14.6 % (11.0-15.5); WHITE BLOOD COUNT (AUTO) 7.3 K/uL (4.8-10.8)
[2023-03-19 06:13] LABS: ALBUMIN 3.7 g/dL (3.5-5.0); BILIRUBIN,TOTAL 0.8 mg/dL (0.2-1.0); CREATININE 1.2 mg/dL (0.5-1.5); POTASSIUM 3.9 mmol/L (3.5-5.1); TOTAL PROTEIN, SERUM 8.2 g/dL (6.0-8.3)
[2023-03-19] MEDS: METFORMIN HCL 500 MG TABLET PO SCH ×2 (08:00→18:09)
[2023-03-19] MEDS: EMPAGLIFLOZIN 25MG TABLET PO SCH (08:34)
[2023-03-19] MEDS: Telmisartan 40 MG PO SCH (08:34)
[2023-03-19] MEDS: Icosapent Ethyl (Vascepa) 1 GM PO SCH ×2 (08:34→21:00)
[2023-03-19] MEDS: RIVAROXABAN 20 MG TABLET PO SCH (08:35)
[2023-03-19] MEDS ORDERED: INSULIN DEGLUDEC 160 UNIT SQ SCH (09:00)
[2023-03-19] MEDS: TRESIBA U SQ SCH (10:07)
[2023-03-19] MEDS: PANTOPRAZOLE 40 MG TAB DR PO SCH (10:25)
[2023-03-19] MEDS: METOPROLOL SUCCINATE 50 MG TAB.SR.24H PO SCH (10:25)
[2023-03-19] MEDS: METOLAZONE 2.5 MG TABLET PO SCH (10:25)
[2023-03-19] MEDS: ASPIRIN 81 MG EC TAB PO SCH (10:25)
[2023-03-19] MEDS: PREGABALIN 75 MG CAPSULE PO SCH ×2 (10:25→21:45)
[2023-03-19] MEDS ORDERED: DEXTROSE 50%-WATER 50 ML DISP.SYRIN IV ONE (12:46)
[2023-03-19] MEDS ORDERED: MIDAZOLAM HCL 1 MG/ML 2ML VIAL ONE (13:43)
[2023-03-19] MEDS ORDERED: FENTANYL CITRATE PF 50 MCG/1 ML 2ML VIAL ONE (13:43)
[2023-03-19] MEDS ORDERED: LIDOCAINE HCL 1% 20 ML VIAL ONE (13:45)
[2023-03-19] MEDS ORDERED: BUPIVACAINE/PF 0.25% 30ML VIAL IJ ONE (13:45)
[2023-03-19] MEDS ORDERED: MORPHINE 2 MG SYG IVP PRN (19:00)
[2023-03-19] MEDS: ATORVASTATIN 20 MG TABLET PO SCH (21:44)
[2023-03-19] MEDS: DIGOXIN 125 MCG TABLET PO SCH (21:44)
[2023-03-19] MEDS: TRAZODONE HCL 100 MG TABLET PO SCH (21:44)
[2023-03-20 04:00] VITALS: BP 116/80; PULSE 82; RESP 18
[2023-03-20] MEDS: ZOSYN 3.375GM +NS 50ML IVPB SCH ×3 (04:38→20:38)
[2023-03-20 08:00] VITALS: BP 108/79; PULSE 81; RESP 17; O2SAT 92
[2023-03-20] MEDS: INSULIN LISPRO 100 UNIT/ML 3ML SQ SCH ×4 (08:30→20:39)
[2023-03-20 08:52] LABS: HEMATOCRIT 45.7 % (42-54); MEAN CORPUSCULAR HEMOGLOBIN 29.8 pg (27.0-33.0); MEAN CORPUSCULAR VOLUME 90.1 fL (79-99); RED BLOOD CELL COUNT(AUTO) 5.07 MIL/uL (4.50-6.20); RED CELL DISTRIBUTION WIDTH 14.6 % (11.0-15.5); WHITE BLOOD COUNT (AUTO) 6.7 K/uL (4.8-10.8)
[2023-03-20 08:59] LABS: CREATININE 1.3 mg/dL (0.5-1.5); POTASSIUM 4.1 mmol/L (3.5-5.1)
[2023-03-20] MEDS: Telmisartan 40 MG PO SCH (09:00)
[2023-03-20] MEDS: Icosapent Ethyl (Vascepa) 1 GM PO SCH ×2 (09:00→20:39)
[2023-03-20] MEDS: PREGABALIN 75 MG CAPSULE PO SCH ×2 (10:01→20:38)
[2023-03-20] MEDS: PANTOPRAZOLE 40 MG TAB DR PO SCH (10:01)
[2023-03-20] MEDS: ASPIRIN 81 MG EC TAB PO SCH (10:01)
[2023-03-20] MEDS: METFORMIN HCL 500 MG TABLET PO SCH ×2 (10:01→17:59)
[2023-03-20] MEDS: RIVAROXABAN 20 MG TABLET PO SCH (10:01)
[2023-03-20] MEDS: EMPAGLIFLOZIN 25MG TABLET PO SCH (10:01)
[2023-03-20] MEDS: METOPROLOL SUCCINATE 50 MG TAB.SR.24H PO SCH (10:01)
[2023-03-20] MEDS: INSULIN GLARGINE 100 UNITS/ML 10 ML VIAL SQ SCH (10:04)
[2023-03-20] MEDS: METOLAZONE 2.5 MG TABLET PO SCH (10:06)
[2023-03-20 10:45] LABS: HEMOGLOBIN A1C 8.6 % (4.0-6.0)
[2023-03-20 11:53] VITALS: BP 116/75; PULSE 68; RESP 17
[2023-03-20 16:00] VITALS: BP 125/86; PULSE 80; RESP 17
[2023-03-20 20:00] VITALS: BP 158/72; PULSE 86; RESP 20; O2SAT 92
[2023-03-20] MEDS: TRAZODONE HCL 100 MG TABLET PO SCH (20:38)
[2023-03-20] MEDS: ATORVASTATIN 20 MG TABLET PO SCH (20:38)
[2023-03-20] MEDS: DIGOXIN 125 MCG TABLET PO SCH (20:39)
[2023-03-20 21:39] VITALS: PULSE 76
[2023-03-21] VITALS: BP 123/69; PULSE 76; RESP 20
[2023-03-21 04:00] VITALS: BP 117/67; PULSE 78; RESP 20
[2023-03-21] MEDS: ZOSYN 3.375GM +NS 50ML IVPB SCH (04:11)
[2023-03-21 05:40] LABS: MEAN CORPUSCULAR HEMOGLOBIN 29.8 pg (27.0-33.0); MEAN CORPUSCULAR VOLUME 90.2 fL (79-99); RED BLOOD CELL COUNT(AUTO) 5.21 MIL/uL (4.50-6.20); RED CELL DISTRIBUTION WIDTH 14.6 % (11.0-15.5)
[2023-03-21 05:46] LABS: CREATININE 1.4 mg/dL (0.5-1.5); POTASSIUM 3.3 mmol/L (3.5-5.1)
[2023-03-21] MEDS: INSULIN GLARGINE 100 UNITS/ML 10 ML VIAL SQ SCH (06:00)
[2023-03-21] MEDS: INSULIN LISPRO 100 UNIT/ML 3ML SQ SCH ×2 (06:27→11:30)
[2023-03-21 08:00] VITALS: BP 128/76; PULSE 89; RESP 16
[2023-03-21 08:30] VITALS: O2SAT 92
[2023-03-21] MEDS: Icosapent Ethyl (Vascepa) 1 GM PO SCH (09:00)
[2023-03-21] MEDS: Telmisartan 40 MG PO SCH (09:00)
[2023-03-21] MEDS: PANTOPRAZOLE 40 MG TAB DR PO SCH (10:07)
[2023-03-21] MEDS: METOPROLOL SUCCINATE 50 MG TAB.SR.24H PO SCH (10:07)
[2023-03-21] MEDS: EMPAGLIFLOZIN 25MG TABLET PO SCH (10:08)
[2023-03-21] MEDS: METOLAZONE 2.5 MG TABLET PO SCH (10:08)
[2023-03-21] MEDS: RIVAROXABAN 20 MG TABLET PO SCH (10:08)
[2023-03-21] MEDS: ASPIRIN 81 MG EC TAB PO SCH (10:08)
[2023-03-21] MEDS: PREGABALIN 75 MG CAPSULE PO SCH (10:08)
[2023-03-21] MEDS: METFORMIN HCL 500 MG TABLET PO SCH (10:10)
[2023-03-21 12:00] VITALS: BP 111/58; PULSE 88; RESP 18
[2023-03-25] MEDS ORDERED: Semaglutide (Ozempic) 0.5 MG SQ SCH (09:00)
== END 2023-03-21 15:30 | disposition home health service (06) | DRG 256 ==
LOC: EDH 09:20 → EDHIP 12:32 → 3CH 16:30
PROVIDERS: ADMIT Internal Medicine; ATTEND Internal Medicine
PROC: 0JBQ0ZZ Excision of Right Foot Subcutaneous Tissue and Fascia, Open Approach (ICD-10-PCS; 2023-03-18)
PROC: 0Y6T0Z0 Detachment at Right 3rd Toe, Complete, Open Approach (ICD-10-PCS; principal; 2023-03-19 13:58)
DX: E11.52 Type 2 diabetes mellitus with diabetic peripheral angiopathy with gangrene (principal); I48.19 Other persistent atrial fibrillation; I96 Gangrene, not elsewhere classified; L03.115 Cellulitis of right lower limb; M86.8X7 Other osteomyelitis, ankle and foot; E11.69 Type 2 diabetes mellitus with other specified complication; E11.65 Type 2 diabetes mellitus with hyperglycemia; I25.10 Atherosclerotic heart disease of native coronary artery without angina pectoris; L03.031 Cellulitis of right toe; E78.00 Pure hypercholesterolemia, unspecified; I10 Essential (primary) hypertension; M20.41 Other hammer toe(s) (acquired), right foot; Z79.01 Long term (current) use of anticoagulants; Z95.5 Presence of coronary angioplasty implant and graft; Z79.84 Long term (current) use of oral hypoglycemic drugs
CPT/HCPCS: 36415; 73620; 80048; 80053; 82306; 82550; 82948; 83036; 83605; 83874; 84484; 85025; 85027; 87070; 87076; 87077; 87186; 88304; 88311; 93005; G0378; J1815; J2250; J2270; J2543; J3010; J3370; J3490; J7070; A4649; A4930; A6446; C1729